=== PATIENT | male | born 1960 | race Caucasian/White ===

== ENCOUNTER 2016-12-09 13:18 | Emergency (ER) | payer OTHER ==
[~2016-12-09] VITALS: Ht 177.8 cm; Wt 81.6 kg
[~2016-12-09 13:18] MED LIST: ABILIFY5 MG PO; ADVIL,NUPRIN,M200 MG PO; ALBUTEROL SULF8.5 GM IH; ARTIFICIAL TEAR15 M1 BOTH EYES; BLOOD PRESSURE PILL; CIPROFLOXACIN500 M1 PO; ESCITALOPRAM OX10 MG PO; K-DUR20 MEQ PO; LORAZEPAM2 MG/1 M1 PO; METRONIDAZOLE500 MG PO; NICOTINE PATCH1 EACH TD; PREDNISONE20 MG PO
[2016-12-09 14:05] LABS: HEMATOCRIT 38.6 % (38.0-50.0); MCH 38.3 PG (29.0-34.0); MCHC 35.5 G/DL (30.0-36.0); MCV 107.8 FL (86-99); MEAN PLAT.VOLUME 10.2 uM^3 (9.0-12.4); PLATELET COUNT 169 K/uL (156-360); RBC DIS.WIDTH-CV 14.6 % (11.8-14.6); RBC DIS.WIDTH-SD 58.4 % (39-53); RED BLOOD COUNT 3.58 M/uL (4.00-5.50); WHITE BLOOD COUNT 8.8 K/uL (4.1-10.2)
[2016-12-09 14:16] LABS: CHLORIDE 101 mEq/L (99-109); POTASSIUM 3.9 mEq/L (3.7-5.4); SODIUM 137 mEq/L (136-147)
[2016-12-09 14:19] LABS: GLUCOSE 100 mg/dL (70-99)
[2016-12-09 14:20] LABS: ANION GAP 11 MEQ/L (2-14)
[2016-12-09 14:21] LABS: TOTAL BILIRUBIN 2.3 mg/dL (0.0-1.0)
[2016-12-09 14:22] LABS: ALKALINE PHOSPHATASE 173 IU/L (3-129); GFR ESTIMATE (CALCULATED) > 59 mL/min/
[2016-12-09 14:23] LABS: UREA NITROGEN (BUN) 9 mg/dL (9-23)
[2016-12-09 14:26] LABS: LIPASE 32 U/L (1.0-51.0)
[2016-12-09 14:58] LABS: INTER. NORMALIZED RATIO 1.1; PROTHROMBIN TIME 11.3 (9.2-11.2); PTT 29.2 (25-32)
[2016-12-09 16:02] LABS: ADD MIUA? YES; BILIRUBIN MODERATE; BLOOD NEGATIVE; COLOR AMBER ((YELLOW)); GLUCOSE (STRIP) NEGATIVE; KETONES 5; LEUKOCYTES NEGATIVE; NITRITE NEGATIVE; PROTEIN (STRIP) 100; SPECIFIC GRAVITY 1.035 (1.000-1.030)
[2016-12-09 16:17] LABS: DIRECT BILIRUBIN 1.6 mg/dL (0.0-0.3)
[2016-12-09 16:28] LABS: RED BLOOD CELLS RARE /HPF (0-5)
[2016-12-09 16:29] LABS: CASTS PRESENT /LPF; CRYSTALS NONE SEEN; EPITHELIAL CELLS RARE /HPF; HYALINE CASTS RARE /LPF; MUCUS 3+ /LPF; UCUL ADDED? NO; WHITE BLOOD CELLS 0-5 /HPF (0-5)
[2016-12-09 16:30] LABS: BACTERIA RARE /HPF
[2016-12-09 16:34] LABS: ICTOTEST POSITIVE
[2016-12-09] MEDS ORDERED: ALDACTONE100 MG PO (18:17)
[2016-12-09] MEDS ORDERED: PROTONIX40 MG PO (18:32)
[2016-12-09 18:45] VITALS: BP 129/93
[2016-12-10 12:23] LABS: POC NON-PRINT COM 1 ND
== END 2016-12-09 18:46 | disposition home or self-care (01) ==
LOC: EME 13:18
PROVIDERS: Physician Assistant
DX: K74.60 Unspecified cirrhosis of liver (principal); R18.8 Other ascites; Z85.118 Personal history of other malignant neoplasm of bronchus and lung; F17.200 Nicotine dependence, unspecified, uncomplicated
CPT/HCPCS: 74176; 80053; 81003; 82140; 82248; 82272; 83605; 83690; 85027; 85610; 85730; 99281; 99284

== ENCOUNTER → 2016-12-16 | Outpatient (CLI) | payer OTHER ==
[~2016-12-16] MED LIST changes: +ALDACTONE100 MG PO; +PROTONIX40 MG PO
[2016-12-16 08:49] LABS: TYPE OF FLUID PARACENTESIS
[2016-12-16 09:19] LABS: BODY FLUID RBC'S 0 /MM^3 (0-100); BODY FLUID WBC'S 39 /MM^3 (0-500); RED CELL AREA COUNTED 9; RED CELL DILUTION 1; WBC AREA COUNTED 18; WBC DILUTION 1; WHITE CELL RAW COUNT 70
[2016-12-16 09:34] LABS: BODY FLUID EOSINOPHILS 0 % (0-25); MONO RAW COUNT 69; MONONUCLEAR WBC'S 69 %; POLY RAW COUNT 31; POLYNUCLEAR WBC'S 31 % (0-25)
[2016-12-16 10:13] LABS: BODY FLUID PROTEIN < 3.0 G/DL
== END | disposition home or self-care (01) ==
LOC: RAD 07:54
PROVIDERS: Radiology Diagnostic Radiology
PROC: 0W9G3ZZ Drainage of Peritoneal Cavity, Percutaneous Approach (ICD-10-PCS; principal; 2016-12-16)
DX: R18.8 Other ascites (principal)
CPT/HCPCS: 84157; 87070; 87205; 88108; 89051

== ENCOUNTER 2016-12-20 21:41 | Inpatient (IN) | payer OTHER ==
[~2016-12-20] VITALS: Ht 170.2 cm; Wt 81.1 kg
[2016-12-20 22:12] LABS: HEMATOCRIT 36.8 % (38.0-50.0); MCH 39.4 PG (29.0-34.0); MCHC 36.7 G/DL (30.0-36.0); MCV 107.3 FL (86-99); MEAN PLAT.VOLUME 10.2 uM^3 (9.0-12.4); NRBC (%) 0.3 /100 WBC (0-0); PLATELET COUNT 190 K/uL (156-360); RBC DIS.WIDTH-CV 15.2 % (11.8-14.6); RED BLOOD COUNT 3.43 M/uL (4.00-5.50); WHITE BLOOD COUNT 10.2 K/uL (4.1-10.2)
[2016-12-20 22:22] LABS: CHLORIDE 95 mEq/L (99-109); POTASSIUM 4.3 mEq/L (3.7-5.4)
[2016-12-20 22:23] LABS: SODIUM 130 mEq/L (136-147)
[2016-12-20 22:25] LABS: GLUCOSE 118 mg/dL (70-99)
[2016-12-20 22:26] LABS: ANION GAP 17 MEQ/L (2-14)
[2016-12-20 22:27] LABS: TOTAL BILIRUBIN 3.4 mg/dL (0.0-1.0)
[2016-12-20 22:28] LABS: ALKALINE PHOSPHATASE 188 IU/L (3-129); GFR ESTIMATE (CALCULATED) 48 mL/min/
[2016-12-20 22:30] LABS: UREA NITROGEN (BUN) 16 mg/dL (9-23)
[2016-12-21 00:20] LABS: TROP-I INTERPRETATION NEGATIVE; TROPONIN-I < 0.01 ng/mL (0.0-0.30)
[2016-12-21 02:50] LABS: ADD MIUA? YES; BILIRUBIN SMALL; BLOOD SMALL; COLOR AMBER ((YELLOW)); GLUCOSE (STRIP) NEGATIVE; KETONES NEGATIVE; LEUKOCYTES NEGATIVE; NITRITE NEGATIVE; PROTEIN (STRIP) 30; SPECIFIC GRAVITY 1.025 (1.000-1.030)
[2016-12-21 03:16] LABS: RED BLOOD CELLS 0-5 /HPF (0-5)
[2016-12-21 03:17] LABS: BACTERIA NONE SEEN /HPF; CASTS PRESENT /LPF; EPITHELIAL CELLS 1+ /HPF; FINE GRANULAR CASTS 0-5 /LPF; MUCUS NONE SEEN /LPF; UCUL ADDED? NO; WHITE BLOOD CELLS 0-5 /HPF (0-5)
[2016-12-21 03:36] LABS: INTER. NORMALIZED RATIO 1.2
[2016-12-21 04:35] VITALS: BP 148/72
[2016-12-21 09:11] LABS: MAGNESIUM 1.8 mg/dL (1.3-2.7)
[2016-12-21 10:27] VITALS: BP 131/72
[2016-12-21 12:06] LABS: HBSG INDEX 0.25
[2016-12-21 12:07] LABS: ANTI-HEPATITIS A VIRUS (IGM) Nonreactive; HAV INDEX 0.18
[2016-12-21 12:08] LABS: ANTI-HEPATITIS B CORE (IGM) Nonreactive; HBC IgM INDEX 0.14
[2016-12-21 12:18] LABS: HPCA INDEX 5.55
[2016-12-21 15:37] VITALS: BP 129/72
[2016-12-21] MEDS ORDERED: COMBIVENT RESPIM4 GM IH (18:51)
[2016-12-21] MEDS ORDERED: OMEPRAZOLE20 MG PO (18:51)
[2016-12-21] MEDS ORDERED: FUROSEMIDE20 MG PO (18:53)
[2016-12-21 20:28] LABS: TYPE OF FLUID PARACENTESIS
[2016-12-21 22:01] LABS: BODY FLUID EOSINOPHILS 0 % (0-25); BODY FLUID RBC'S < 1000 /MM^3 (0-100); BODY FLUID WBC'S 29 /MM^3 (0-500); COMMENT MANY MESOTHELIAL CELLS AND FEW MACROPHAGES SEEN; MONONUCLEAR WBC'S 32 %; POLYNUCLEAR WBC'S 68 % (0-25)
[2016-12-21 22:23] VITALS: BP 135/84
[2016-12-22 02:34] VITALS: BP 143/78
[2016-12-22 06:43] LABS: EOSINOPHIL (%) 0 % (0-5); HEMATOCRIT 33.8 % (38.0-50.0); IMMATURE GRANULOCYTE (%) 0.6 % (0.0-0.7); IMMATURE GRANULOCYTE COUNT 0.1 K/uL; INSTRUMENT ABS NEUTROPHIL CT 10.7 K/uL; LYMPHOCYTE COUNT 0.3 K/uL (1.0-2.8); MCH 38.7 PG (29.0-34.0); MCHC 36.4 G/DL (30.0-36.0); MCV 106.3 FL (86-99); MONOCYTE (%) 10.3 % (3-12); MONOCYTE COUNT 1.3 K/uL (0-0.8); NEUTROPHIL (%) 86.3 % (45-76); NEUTROPHIL COUNT 10.7 K/uL (1.8-6.4); NRBC (%) 0.2 /100 WBC (0-0); RBC DIS.WIDTH-CV 14.6 % (11.8-14.6); RBC DIS.WIDTH-SD 57.4 % (39-53); RED BLOOD COUNT 3.18 M/uL (4.00-5.50); WHITE BLOOD COUNT 12.4 K/uL (4.1-10.2)
[2016-12-22 06:54] VITALS: BP 133/70
[2016-12-22 06:56] LABS: ALKALINE PHOSPHATASE 155 IU/L (3-129); ANION GAP 11 MEQ/L (2-14); CHLORIDE 93 MEQ/L (99-109); GFR ESTIMATE (CALCULATED) > 59 mL/min/; GLUCOSE 116 mg/dL (70-99); POTASSIUM 4.1 MEQ/L (3.7-5.4); SAMPLE HEMOLYSIS CHECK 0; SAMPLE ICTERIC CHECK 1; SAMPLE LIPEMIA CHECK 0; SODIUM 128 MEQ/L (136-147); TOTAL BILIRUBIN 5.2 MG/DL (0.0-1.0); UREA NITROGEN (BUN) 18 mg/dL (9-23)
[2016-12-22 07:12] LABS: MEAN PLAT.VOLUME 10.4 uM^3 (9.0-12.4); PLAT.SUFFICIENCY DECREASED
[2016-12-22 07:36] LABS: PLATELET COUNT 125 K/uL (156-360)
== END 2016-12-22 11:56 | disposition left against medical advice (07) | DRG 433 ==
LOC: EME 21:41 → EDOF 12-21 03:01 → 5EAST 12-21 04:17
PROVIDERS: Emergency Medicine; Hospitalist
PROC: 0W9G3ZZ Drainage of Peritoneal Cavity, Percutaneous Approach (ICD-10-PCS; principal; 2016-12-21)
DX: K70.31 Alcoholic cirrhosis of liver with ascites (principal); E87.1 Hypo-osmolality and hyponatremia; N17.9 Acute kidney failure, unspecified; B19.20 Unspecified viral hepatitis C without hepatic coma; Z85.118 Personal history of other malignant neoplasm of bronchus and lung; F17.210 Nicotine dependence, cigarettes, uncomplicated; J44.9 Chronic obstructive pulmonary disease, unspecified; F10.21 Alcohol dependence, in remission
CPT/HCPCS: 71020; 80053; 80074; 81003; 82105 90; 83605; 83735; 83880; 84484; 85025; 85027; 85610; 87070; 87075; 87205; 89051; 93005; 93306; 94640; 94640 76; 99202; 99281; 99285; J1170; J1940; J2270; J2405; J2930; P9047

== ENCOUNTER → 2017-01-06 | Outpatient (CLI) | payer OTHER ==
[~2017-01-06] MED LIST changes: +COMBIVENT RESPIM4 GM IH; +FUROSEMIDE20 MG PO; +OMEPRAZOLE20 MG PO
[2017-01-06 13:50] LABS: TYPE OF FLUID PARACENTESIS
[2017-01-06 14:28] LABS: BODY FLUID PROTEIN < 3.0 G/DL
[2017-01-06 14:30] LABS: BODY FLUID EOSINOPHILS 1 % (0-25); BODY FLUID RBC'S < 1000 /MM^3 (0-100); BODY FLUID WBC'S 179 /MM^3 (0-500); MONONUCLEAR WBC'S 38 %; POLYNUCLEAR WBC'S 61 % (0-25)
== END | disposition home or self-care (01) ==
LOC: RAD 12:41
PROVIDERS: Internal Medicine Gastroenterology
PROC: 0W9G3ZZ Drainage of Peritoneal Cavity, Percutaneous Approach (ICD-10-PCS; principal; 2017-01-06)
DX: R18.8 Other ascites (principal)
CPT/HCPCS: 84157; 87070; 87205; 88108; 88305; 89051

== ENCOUNTER 2017-02-03 17:44 | Emergency (ER) | payer OTHER ==
[~2017-02-03] VITALS: Ht 177.8 cm; Wt 77.3 kg
[2017-02-03 18:25] LABS: HEMATOCRIT 40.9 % (38.0-50.0); MCH 37.9 PG (29.0-34.0); MCHC 35.9 G/DL (30.0-36.0); MCV 105.4 FL (86-99); MEAN PLAT.VOLUME 8.9 uM^3 (9.0-12.4); PLATELET COUNT 272 K/uL (156-360); RBC DIS.WIDTH-CV 12.3 % (11.8-14.6); RBC DIS.WIDTH-SD 48.3 % (39-53); RED BLOOD COUNT 3.88 M/uL (4.00-5.50); WHITE BLOOD COUNT 13.7 K/uL (4.1-10.2)
[2017-02-03 18:43] LABS: CHLORIDE 93 mEq/L (99-109); POTASSIUM 4.2 mEq/L (3.7-5.4); SODIUM 126 mEq/L (136-147)
[2017-02-03 18:45] LABS: GLUCOSE 117 mg/dL (70-99)
[2017-02-03 18:46] LABS: ANION GAP 12 MEQ/L (2-14)
[2017-02-03 18:47] LABS: TOTAL BILIRUBIN 1.6 mg/dL (0.0-1.0)
[2017-02-03 18:49] LABS: ALKALINE PHOSPHATASE 115 IU/L (3-129); GFR ESTIMATE (CALCULATED) 45 mL/min/
[2017-02-03 18:50] LABS: UREA NITROGEN (BUN) 28 mg/dL (9-23)
[2017-02-03 21:16] LABS: ADD MIUA? YES; BILIRUBIN NEGATIVE; BLOOD NEGATIVE; COLOR AMBER ((YELLOW)); GLUCOSE (STRIP) NEGATIVE; KETONES 5; LEUKOCYTES NEGATIVE; NITRITE NEGATIVE; PROTEIN (STRIP) 30
[2017-02-03 21:42] LABS: BACTERIA NONE SEEN /HPF; EPITHELIAL CELLS RARE /HPF; HYALINE CASTS 15-20 /LPF; MUCUS 2+ /LPF; RED BLOOD CELLS NONE SEEN /HPF (0-5); UCUL ADDED? NO; WHITE BLOOD CELLS 0-5 /HPF (0-5); WHITE CELL CASTS TNTC /LPF
[2017-02-03 21:45] VITALS: BP 128/88
== END 2017-02-03 21:47 | disposition home or self-care (01) ==
LOC: EME 17:44
DX: E86.0 Dehydration (principal); N28.9 Disorder of kidney and ureter, unspecified; K74.60 Unspecified cirrhosis of liver; J44.9 Chronic obstructive pulmonary disease, unspecified; F17.200 Nicotine dependence, unspecified, uncomplicated; K21.9 Gastro-esophageal reflux disease without esophagitis; Z88.0 Allergy status to penicillin
CPT/HCPCS: 80053; 81003; 85027; 99281; 99285; J7040

== ENCOUNTER → 2017-02-13 | Outpatient (CLI) | payer OTHER | END | disposition home or self-care (01) | LOC: RAD 07:47 | PROC: 0W9G3ZZ Drainage of Peritoneal Cavity, Percutaneous Approach (ICD-10-PCS; principal; 2017-02-13) | DX: R18.8 Other ascites (principal) | CPT/HCPCS: P9047 ==

== ENCOUNTER → 2017-02-26 | Outpatient (CLI) | payer OTHER ==
[~2017-02-26] MED LIST changes: +FOLIC ACID0.8 M1 PO; +TRAMADOL HCL50 MG PO
== END | disposition home or self-care (01) ==
LOC: RAD 08:20
PROC: 0W9G3ZZ Drainage of Peritoneal Cavity, Percutaneous Approach (ICD-10-PCS; principal; 2017-02-26)
DX: R18.8 Other ascites (principal)
CPT/HCPCS: P9047

== ENCOUNTER 2017-03-11 14:35 | Emergency (ER) | payer OTHER ==
[~2017-03-11] VITALS: Ht 177.8 cm; Wt 67.4 kg
[2017-03-11] MEDS ORDERED: SPIRONOLACTONE50 MG PO (14:48)
[2017-03-11] MEDS ORDERED: FOLIC ACID1 MG PO (14:48)
[2017-03-11 15:19] LABS: BASOPHIL COUNT 0.1 K/uL (0-0.1); EOSINOPHIL (%) 0.5 % (0-5); EOSINOPHIL COUNT 0.1 K/uL (0-0.3); HEMATOCRIT 37.4 % (38.0-50.0); IMMATURE GRANULOCYTE (%) 0.8 % (0.0-0.7); IMMATURE GRANULOCYTE COUNT 0.1 K/uL; INSTRUMENT ABS NEUTROPHIL CT 7.6 K/uL; LYMPHOCYTE COUNT 1.3 K/uL (1.0-2.8); MCH 37.1 PG (29.0-34.0); MCHC 36.6 G/DL (30.0-36.0); MCV 101.4 FL (86-99); MEAN PLAT.VOLUME 8.4 uM^3 (9.0-12.4); MONOCYTE (%) 10.6 % (3-12); MONOCYTE COUNT 1.1 K/uL (0-0.8); NEUTROPHIL (%) 74.3 % (45-76); NEUTROPHIL COUNT 7.6 K/uL (1.8-6.4); PLATELET COUNT 279 K/uL (156-360); RBC DIS.WIDTH-CV 12.6 % (11.8-14.6); RBC DIS.WIDTH-SD 47.2 % (39-53); RED BLOOD COUNT 3.69 M/uL (4.00-5.50); WHITE BLOOD COUNT 10.2 K/uL (4.1-10.2)
[2017-03-11 15:26] LABS: CHLORIDE 95 mEq/L (99-109); POTASSIUM 4.9 mEq/L (3.7-5.4); SODIUM 130 mEq/L (136-147)
[2017-03-11 15:27] LABS: INTER. NORMALIZED RATIO 1.1; PROTHROMBIN TIME 10.8 (9.2-11.2)
[2017-03-11 15:28] LABS: GLUCOSE 110 mg/dL (70-99)
[2017-03-11 15:30] LABS: ANION GAP 11 MEQ/L (2-14)
[2017-03-11 15:31] LABS: SERUM ETHYL ALCOHOL 340 mg/dL
[2017-03-11 15:32] LABS: GFR ESTIMATE (CALCULATED) > 59 mL/min/
[2017-03-11 15:33] LABS: UREA NITROGEN (BUN) 11 mg/dL (9-23)
[2017-03-11] MEDS ORDERED: SILVADENE20 GM TP (17:36)
[2017-03-11 18:13] VITALS: BP 101/73
== END 2017-03-11 18:16 | disposition home or self-care (01) ==
LOC: EME 14:35
PROVIDERS: Emergency Medicine
DX: S06.9X9A Unspecified intracranial injury with loss of consciousness of unspecified duration, initial encounter (principal); S40.211A Abrasion of right shoulder, initial encounter; S40.812A Abrasion of left upper arm, initial encounter; S40.811A Abrasion of right upper arm, initial encounter; S80.812A Abrasion, left lower leg, initial encounter; S80.811A Abrasion, right lower leg, initial encounter; S00.81XA Abrasion of other part of head, initial encounter; W10.9XXA Fall (on) (from) unspecified stairs and steps, initial encounter; F10.129 Alcohol abuse with intoxication, unspecified; Y90.8 Blood alcohol level of 240 mg/100 ml or more; J44.9 Chronic obstructive pulmonary disease, unspecified; Z85.118 Personal history of other malignant neoplasm of bronchus and lung; F17.200 Nicotine dependence, unspecified, uncomplicated
CPT/HCPCS: 70450; 80048; 85025; 85610; 93005; 99281; 99285; G0480

== ENCOUNTER → 2017-03-17 | Outpatient (CLI) | payer OTHER ==
[~2017-03-17] MED LIST changes: +FOLIC ACID1 MG PO; +SILVADENE20 GM TP; +SPIRONOLACTONE50 MG PO
== END | disposition home or self-care (01) ==
LOC: RAD 03-12 13:15
PROC: 0W9G3ZZ Drainage of Peritoneal Cavity, Percutaneous Approach (ICD-10-PCS; principal; 2017-03-17)
DX: R18.8 Other ascites (principal)
CPT/HCPCS: 49083; P9047

== ENCOUNTER 2017-03-18 08:22 | Emergency (ER) | payer OTHER ==
[~2017-03-18] VITALS: Ht 177.8 cm; Wt 63.0 kg
[2017-03-18 10:09] VITALS: BP 120/74
== END 2017-03-18 10:13 | disposition home or self-care (01) ==
LOC: EME 08:22
DX: K74.60 Unspecified cirrhosis of liver (principal); F10.10 Alcohol abuse, uncomplicated; Z76.82 Awaiting organ transplant status; F17.200 Nicotine dependence, unspecified, uncomplicated; K21.9 Gastro-esophageal reflux disease without esophagitis; J44.9 Chronic obstructive pulmonary disease, unspecified
CPT/HCPCS: 99281; 99283

== ENCOUNTER → 2017-03-25 | Outpatient (CLI) | payer OTHER | END | disposition home or self-care (01) | LOC: RAD 07:47 | PROC: 0W9G3ZZ Drainage of Peritoneal Cavity, Percutaneous Approach (ICD-10-PCS; principal; 2017-03-25) | DX: R18.8 Other ascites (principal) | CPT/HCPCS: 49083; P9047 ==

== ENCOUNTER → 2017-04-23 | Outpatient (CLI) | payer OTHER | END | disposition home or self-care (01) | LOC: RAD 04-13 08:30 | PROC: 0W9G3ZZ Drainage of Peritoneal Cavity, Percutaneous Approach (ICD-10-PCS; principal; 2017-04-23) | DX: R18.8 Other ascites (principal) | CPT/HCPCS: 49083; P9047 ==

== ENCOUNTER → 2017-04-30 | Outpatient (CLI) | payer OTHER ==
[~2017-04-30] MED LIST changes: +NEURONTIN300 MG PO
== END | disposition home or self-care (01) ==
LOC: RAD 07:54
PROC: 0W9G3ZZ Drainage of Peritoneal Cavity, Percutaneous Approach (ICD-10-PCS; principal; 2017-04-30)
DX: R18.8 Other ascites (principal)
CPT/HCPCS: 49083; P9047

== ENCOUNTER → 2017-05-05 | Outpatient (CLI) | payer OTHER ==
[~2017-05-05] MED LIST changes: +GABAPENTIN600 MG PO
== END | disposition home or self-care (01) ==
LOC: RAD 12:58
PROC: 0W9G3ZZ Drainage of Peritoneal Cavity, Percutaneous Approach (ICD-10-PCS; principal; 2017-05-05)
DX: R18.8 Other ascites (principal)
CPT/HCPCS: 49083; P9047

== ENCOUNTER → 2017-05-11 | Outpatient (CLI) | payer OTHER | END | disposition home or self-care (01) | LOC: RAD 12:43 | PROC: 0W9G3ZZ Drainage of Peritoneal Cavity, Percutaneous Approach (ICD-10-PCS; principal; 2017-05-11) | DX: K74.69 Other cirrhosis of liver (principal) | CPT/HCPCS: 49083; P9047 ==

== ENCOUNTER → 2017-05-14 | Outpatient (CLI) | payer OTHER | END | disposition home or self-care (01) | LOC: RAD 07:41 | PROC: 0W9G3ZZ Drainage of Peritoneal Cavity, Percutaneous Approach (ICD-10-PCS; principal; 2017-05-14) | DX: K74.69 Other cirrhosis of liver (principal); R18.8 Other ascites | CPT/HCPCS: 49083; P9047 ==

== ENCOUNTER → 2017-05-18 | Outpatient (CLI) | payer OTHER | END | disposition home or self-care (01) | LOC: RAD 10:16 | PROC: 0W9G3ZZ Drainage of Peritoneal Cavity, Percutaneous Approach (ICD-10-PCS; principal; 2017-05-18) | DX: K74.69 Other cirrhosis of liver (principal); R18.8 Other ascites | CPT/HCPCS: 49083; P9047 ==

== ENCOUNTER → 2017-05-25 | Outpatient (CLI) | payer OTHER | END | disposition home or self-care (01) | LOC: RAD 05-07 08:15 | PROC: 0W9G3ZZ Drainage of Peritoneal Cavity, Percutaneous Approach (ICD-10-PCS; principal; 2017-05-25) | DX: K74.69 Other cirrhosis of liver (principal); R18.8 Other ascites | CPT/HCPCS: 49083; P9047 ==

== ENCOUNTER → 2017-05-28 | Outpatient (CLI) | payer OTHER | END | disposition home or self-care (01) | LOC: RAD 07:53 | PROC: 0W9G3ZZ Drainage of Peritoneal Cavity, Percutaneous Approach (ICD-10-PCS; principal; 2017-05-28) | DX: K74.69 Other cirrhosis of liver (principal); R18.8 Other ascites | CPT/HCPCS: 49083; P9047 ==

== ENCOUNTER → 2017-06-02 | Outpatient (CLI) | payer OTHER ==
[~2017-06-02] MED LIST changes: +ALDACTONE25 MG PO
== END | disposition home or self-care (01) ==
LOC: RAD 06-01 08:30
PROC: 0W9G3ZZ Drainage of Peritoneal Cavity, Percutaneous Approach (ICD-10-PCS; principal; 2017-06-02)
DX: K74.69 Other cirrhosis of liver (principal); R18.8 Other ascites
CPT/HCPCS: 49083; P9047

== ENCOUNTER → 2017-06-05 | Outpatient (CLI) | payer OTHER | END | disposition home or self-care (01) | LOC: RAD 07:51 | PROC: 0W9G3ZZ Drainage of Peritoneal Cavity, Percutaneous Approach (ICD-10-PCS; principal; 2017-06-05) | DX: K74.69 Other cirrhosis of liver (principal); R18.8 Other ascites | CPT/HCPCS: 49083; P9047 ==

== ENCOUNTER → 2017-06-09 | Outpatient (CLI) | payer OTHER | END | disposition home or self-care (01) | LOC: RAD 07:52 | PROC: 0W9G3ZZ Drainage of Peritoneal Cavity, Percutaneous Approach (ICD-10-PCS; principal; 2017-06-09) | DX: K74.69 Other cirrhosis of liver (principal); R18.8 Other ascites | CPT/HCPCS: 49083; P9047 ==

== ENCOUNTER → 2017-06-12 | Outpatient (CLI) | payer OTHER | END | disposition home or self-care (01) | LOC: RAD 06-11 08:15 | PROC: 0WJG3ZZ Inspection of Peritoneal Cavity, Percutaneous Approach (ICD-10-PCS; principal; 2017-06-12) | DX: K74.69 Other cirrhosis of liver (principal); R18.8 Other ascites; Z53.09 Procedure and treatment not carried out because of other contraindication | CPT/HCPCS: 76705 ==

== ENCOUNTER → 2017-06-16 | Outpatient (CLI) | payer OTHER | END | disposition home or self-care (01) | LOC: RAD 08:09 | PROC: 0W9G3ZZ Drainage of Peritoneal Cavity, Percutaneous Approach (ICD-10-PCS; principal; 2017-06-16) | DX: R18.8 Other ascites (principal); K74.69 Other cirrhosis of liver | CPT/HCPCS: 49083; P9047 ==

== ENCOUNTER → 2017-06-19 | Outpatient (CLI) | payer OTHER | END | disposition home or self-care (01) | LOC: RAD 06-18 08:15 | PROC: 0WJG3ZZ Inspection of Peritoneal Cavity, Percutaneous Approach (ICD-10-PCS; principal; 2017-06-19) | DX: K74.69 Other cirrhosis of liver (principal); R18.8 Other ascites; Z53.9 Procedure and treatment not carried out, unspecified reason | CPT/HCPCS: 76705 ==

== ENCOUNTER → 2017-06-22 | Outpatient (CLI) | payer OTHER | END | disposition home or self-care (01) | LOC: RAD 05-22 08:15 | PROC: 0W9G3ZZ Drainage of Peritoneal Cavity, Percutaneous Approach (ICD-10-PCS; principal; 2017-06-22) | DX: K74.69 Other cirrhosis of liver (principal); R18.8 Other ascites | CPT/HCPCS: 49083; P9047 ==

== ENCOUNTER → 2017-07-07 | Outpatient (CLI) | payer OTHER | END | disposition home or self-care (01) | LOC: RAD 07:39 | PROC: 0W9G3ZZ Drainage of Peritoneal Cavity, Percutaneous Approach (ICD-10-PCS; principal; 2017-07-07) | DX: K74.69 Other cirrhosis of liver (principal); R18.8 Other ascites | CPT/HCPCS: 49083; P9047 ==

== ENCOUNTER → 2017-07-17 | Outpatient (CLI) | payer OTHER | END | disposition home or self-care (01) | LOC: RAD 07:41 | PROC: 0W9G3ZZ Drainage of Peritoneal Cavity, Percutaneous Approach (ICD-10-PCS; principal; 2017-07-17) | DX: R18.8 Other ascites (principal); K74.69 Other cirrhosis of liver | CPT/HCPCS: 49083; P9047 ==

== ENCOUNTER → 2017-07-21 | Outpatient (CLI) | payer OTHER | END | disposition home or self-care (01) | LOC: RAD 07:51 | PROC: 0W9G3ZZ Drainage of Peritoneal Cavity, Percutaneous Approach (ICD-10-PCS; principal; 2017-07-21) | DX: R18.8 Other ascites (principal); K74.69 Other cirrhosis of liver | CPT/HCPCS: 49083; P9047 ==

== ENCOUNTER → 2017-07-28 | Outpatient (CLI) | payer OTHER | END | disposition home or self-care (01) | LOC: RAD 07:48 | PROC: 0WJG3ZZ Inspection of Peritoneal Cavity, Percutaneous Approach (ICD-10-PCS; principal; 2017-07-28) | DX: K74.69 Other cirrhosis of liver (principal); R18.8 Other ascites; Z53.09 Procedure and treatment not carried out because of other contraindication | CPT/HCPCS: 76705 ==

== ENCOUNTER → 2017-07-31 | Outpatient (CLI) | payer OTHER | END | disposition home or self-care (01) | LOC: RAD 07:54 | PROC: 0W9G3ZZ Drainage of Peritoneal Cavity, Percutaneous Approach (ICD-10-PCS; principal; 2017-07-31) | DX: R18.8 Other ascites (principal); K74.69 Other cirrhosis of liver | CPT/HCPCS: 49083; P9047 ==

== ENCOUNTER → 2017-08-07 | Outpatient (CLI) | payer OTHER | END | disposition home or self-care (01) | LOC: RAD 07-09 08:30 | PROC: 0W9G3ZZ Drainage of Peritoneal Cavity, Percutaneous Approach (ICD-10-PCS; principal; 2017-08-07) | DX: K70.11 Alcoholic hepatitis with ascites (principal) | CPT/HCPCS: 49083; P9047 ==

== ENCOUNTER → 2017-08-19 | Outpatient (CLI) | payer OTHER ==
[~2017-08-19] MED LIST changes: +DICLOZOR1 EACH TP; +LASIX40 MG PO; +PAMELOR50 MG PO
== END | disposition home or self-care (01) ==
LOC: RAD 08-11 13:15
PROC: 0WJG3ZZ Inspection of Peritoneal Cavity, Percutaneous Approach (ICD-10-PCS; principal; 2017-08-19)
DX: K70.11 Alcoholic hepatitis with ascites (principal); Z53.09 Procedure and treatment not carried out because of other contraindication
CPT/HCPCS: 76705; P9047

== ENCOUNTER → 2017-08-26 | Outpatient (CLI) | payer OTHER | END | disposition home or self-care (01) | LOC: RAD 07-02 08:30 | PROC: 0WJG3ZZ Inspection of Peritoneal Cavity, Percutaneous Approach (ICD-10-PCS; principal; 2017-08-26) | DX: K70.11 Alcoholic hepatitis with ascites (principal); Z53.09 Procedure and treatment not carried out because of other contraindication | CPT/HCPCS: 76705 ==

== ENCOUNTER → 2017-09-02 | Outpatient (CLI) | payer OTHER | END | disposition home or self-care (01) | LOC: RAD 08-13 13:30 | PROC: 0W9G3ZZ Drainage of Peritoneal Cavity, Percutaneous Approach (ICD-10-PCS; principal; 2017-09-02) | DX: K70.11 Alcoholic hepatitis with ascites (principal) | CPT/HCPCS: 49083; P9047 ==

== ENCOUNTER → 2017-10-08 | Outpatient (CLI) | payer OTHER | END | disposition home or self-care (01) | LOC: RAD 09-17 08:30 | PROC: 0W9G3ZZ Drainage of Peritoneal Cavity, Percutaneous Approach (ICD-10-PCS; principal; 2017-10-08) | DX: K70.11 Alcoholic hepatitis with ascites (principal) | CPT/HCPCS: 49083; P9047 ==

== ENCOUNTER → 2017-10-26 | Outpatient (CLI) | payer OTHER ==
[~2017-10-26] MED LIST changes: +VITAMIN D5000 UNI1 PO
== END | disposition home or self-care (01) ==
LOC: RAD 09-24 08:15
PROC: 0WJG3ZZ Inspection of Peritoneal Cavity, Percutaneous Approach (ICD-10-PCS; principal; 2017-10-26)
DX: K70.11 Alcoholic hepatitis with ascites (principal); Z53.09 Procedure and treatment not carried out because of other contraindication
CPT/HCPCS: 76705

== ENCOUNTER → 2017-10-30 | Outpatient (CLI) | payer OTHER | END | disposition home or self-care (01) | LOC: RAD 07:46 | PROC: 0WJG3ZZ Inspection of Peritoneal Cavity, Percutaneous Approach (ICD-10-PCS; principal; 2017-10-30) | DX: K70.11 Alcoholic hepatitis with ascites (principal); Z53.09 Procedure and treatment not carried out because of other contraindication | CPT/HCPCS: 76705 ==

== ENCOUNTER → 2017-11-06 | Outpatient (CLI) | payer OTHER | END | disposition home or self-care (01) | LOC: RAD 08:08 | PROC: 0WJG3ZZ Inspection of Peritoneal Cavity, Percutaneous Approach (ICD-10-PCS; principal; 2017-11-06) | DX: K70.11 Alcoholic hepatitis with ascites (principal); Z53.09 Procedure and treatment not carried out because of other contraindication | CPT/HCPCS: 76705 ==

== ENCOUNTER → 2017-11-20 | Outpatient (CLI) | payer OTHER | END | disposition home or self-care (01) | LOC: RAD 07:46 | PROC: 0W9G3ZZ Drainage of Peritoneal Cavity, Percutaneous Approach (ICD-10-PCS; principal; 2017-11-20) | DX: K70.11 Alcoholic hepatitis with ascites (principal) | CPT/HCPCS: 49083; P9047 ==

== ENCOUNTER → 2017-12-07 | Outpatient (CLI) | payer OTHER | END | disposition home or self-care (01) | LOC: RAD 11-13 08:15 | PROC: 0W9G3ZZ Drainage of Peritoneal Cavity, Percutaneous Approach (ICD-10-PCS; principal; 2017-12-07) | DX: K70.11 Alcoholic hepatitis with ascites (principal) | CPT/HCPCS: 49083; P9047 ==

== ENCOUNTER → 2017-12-25 | Outpatient (CLI) | payer OTHER | END | disposition home or self-care (01) | LOC: RAD 11-27 08:15 | PROC: 0WJG3ZZ Inspection of Peritoneal Cavity, Percutaneous Approach (ICD-10-PCS; principal; 2017-12-25) | DX: K70.11 Alcoholic hepatitis with ascites (principal); Z53.09 Procedure and treatment not carried out because of other contraindication | CPT/HCPCS: 49083 ==

== ENCOUNTER → 2018-01-22 | Outpatient (CLI) | payer OTHER | END | disposition home or self-care (01) | LOC: RAD 01-08 08:15 | PROC: 0WJG3ZZ Inspection of Peritoneal Cavity, Percutaneous Approach (ICD-10-PCS; principal; 2018-01-22) | DX: K70.11 Alcoholic hepatitis with ascites (principal); Z53.09 Procedure and treatment not carried out because of other contraindication | CPT/HCPCS: 76705 ==